=== PATIENT | female | born 1980 | race Caucasian/White ===

== ENCOUNTER 2024-11-27 00:04 | Inpatient (IN) | payer BC ==
[2024-11-27] MEDS ORDERED: Lidocaine 1% 50 ML MDV INJECT PRN (00:59)
[2024-11-27] MEDS ORDERED: Sodium Chloride 0.9% 2.5 ML Syringe FLUSH PRN (00:59)
[2024-11-27] MEDS ORDERED: Methylergonovine 0.2 MG/1 ML Amp IM PRN (00:59)
[2024-11-27] MEDS ORDERED: Sodium Chloride 0.9% 10 ML Syringe FLUSH PRN (00:59)
[2024-11-27] MEDS ORDERED: Water For Irrigation,Sterile 1,000 ML Container IRR PRN (00:59)
[2024-11-27] MEDS ORDERED: Carboprost Tromethamine 250 MCG/1 mL Vial IM PRN (00:59)
[2024-11-27] MEDS ORDERED: Sodium Chloride 0.9% 20 ML SDV IV PRN (00:59)
[2024-11-27] MEDS ORDERED: Butorphanol 2 MG/ML SDV IVPUSH PRN (00:59)
[2024-11-27] MEDS ORDERED: Tranexamic Acid in NACL,ISO-OS 1,000 MG in Premix Bag 1 BAG IV PRN (00:59)
[2024-11-27] MEDS ORDERED: Misoprostol 200 MCG Tab PO PRN (00:59)
[2024-11-27] MEDS ORDERED: Oxytocin/0.9 % Sodium Chloride 30 UNIT/500 ML BAG IV SCH (01:00)
[2024-11-27 02:19] LABS: HEMOGLOBIN 11.1 g/dL (12.0-16.0); MEAN CORPUSCULAR HEMOGLOBIN 30.1 pg (28.0-32.0); MEAN CORPUSCULAR HGB CONC 33.6 g/dL (32.0-36.0); MEAN CORPUSCULAR VOLUME 89.4 fL (83.0-99.0); MEAN PLATELET VOLUME 10.1 fL (9.4-12.3); PLATELET COUNT,PLT 275 K/uL (150-400); RED BLOOD CELL COUNT 3.69 M/uL (4.10-5.30); WHITE BLOOD CELL COUNT,WBC 8.54 K/uL (3.9-11.3)
[2024-11-27 02:43] LABS: CREATININE,URINE RAND 135.6 mg/dL; PROTEIN CREATININE RATIO,URINE 0.2; PROTEIN,URINE RANDOM 26.9 mg/dL (<11.9)
[2024-11-27 02:47] LABS: A/G RATIO 0.6 (0.9-1.6); ALBUMIN 2.4 g/dL (3.4-5.0); BILIRUBIN TOTAL 0.3 mg/dL (0.2-1.0); CALCIUM 8.7 mg/dL (8.5-10.1); CREATININE 0.6 mg/dL (0.6-1.0); EST CRCL DRUG DOSING (CG) 106.55 mL/min; PROTEIN TOTAL,TP 6.2 g/dL (6.4-8.2)
[2024-11-27] MEDS ORDERED: Terbutaline 1 MG/ML SDV SUBCUT PRN (03:06)
[2024-11-27] MEDS: Misoprostol 25 MCG (1/4 of 100 MCG) Tab VAG PRN ×2 (03:20→11:19)
[2024-11-27] MEDS: Lactated Ringers 1,000 ML IV SCH (06:00)
[2024-11-27] MEDS: NIFEdipine 30 MG Tab.ER PO SCH (07:02)
[2024-11-27] MEDS ORDERED: Phenylephrine HCl In 0.9% NaCl 1 MG/10 ML Syringe ONE (09:28)
[2024-11-27] MEDS ORDERED: Bupivacaine 0.5% 10 ML SDV ONE (09:28)
[2024-11-27] MEDS: Ropivacaine HCl/PF 200 ML ONE (09:44)
[2024-11-27] MEDS ORDERED: Bupivacaine 0.5% 10 ML SDV INJECT ONE (09:54)
[2024-11-27] MEDS ORDERED: ePHEDrine 50 MG/ML SDV IM PRN (09:54)
[2024-11-27] MEDS ORDERED: Phenylephrine HCl In 0.9% NaCl 1 MG/10 ML Syringe IVPUSH PRN (09:54)
[2024-11-27] MEDS ORDERED: ePHEDrine 50 MG/ML SDV IVPUSH PRN (09:54)
[2024-11-27] MEDS ORDERED: dexmedeTOMIDine HCl 200 MCG/2 ML SDV EPIDUR SCH (10:00)
[2024-11-27] MEDS ORDERED: Ropivacaine HCl/PF 400 MG in Premix Bag 1 BAG EPIDUR SCH (10:00)
[2024-11-27] MEDS ORDERED: Ondansetron 4 MG/2 ML SDV ONE (10:15)
[2024-11-27] MEDS: Ondansetron 4 MG/2 ML SDV IVPUSH PRN (10:19)
[2024-11-27] MEDS: Oxytocin/0.9 % Sodium Chloride 30 UNIT/500 ML BAG IV SCH (17:35)
[2024-11-27] MEDS ORDERED: Lanolin 100% Cream 7 GM Tube TOP PRN (18:52)
[2024-11-27] MEDS ORDERED: Oxytocin 10 Units/1 ML SDV IM PRN (18:52)
[2024-11-27] MEDS ORDERED: Docusate Sodium 100 MG Cap PO PRN (18:52)
[2024-11-27] MEDS ORDERED: Simethicone 80 MG Tab.Chew PO PRN (18:52)
[2024-11-27 19:37] LABS: PH,UMBILICAL ARTERIAL 7.146 (7.18-7.38); PH,UMBILICAL VENOUS 7.162 (7.25-7.45)
[2024-11-27] MEDS: Ibuprofen 800 MG Tab PO PRN (22:51)
[2024-11-27] MEDS: Acetaminophen 500 MG Tab PO PRN (22:51)
[2024-11-27] MEDS: Witch Hazel Medicated Pads 40/Jar TOP PRN (22:52)
[2024-11-27] MEDS: Benzocaine/Menthol 20%-0.5% Spray 78 GM Cannister TOP PRN (22:52)
[2024-11-28 05:31] LABS: BASOPHILS ABSOLUTE AUTO 0.02 K/uL (0.00-0.20); BASOPHILS PERCENT AUTO 0.2 % (0.0-1.0); EOSINOPHILS ABSOLUTE AUTO 0.03 K/uL (0.00-0.45); EOSINOPHILS PERCENT AUTO 0.3 % (0.0-6.0); HEMATOCRIT 29.5 % (37.0-47.0); HEMOGLOBIN 10.1 g/dL (12.0-16.0); IMMATURE GRAN ABSOLUTE AUTO 0.05 K/uL (0.00-0.05); IMMATURE GRAN PERCENT AUTO 0.4 % (0.0-0.4); LYMPHOCYTES ABSOLUTE AUTO 2.41 K/uL (1.00-4.80); LYMPHOCYTES PERCENT AUTO 20.5 % (24.0-44.0); MEAN CORPUSCULAR HEMOGLOBIN 30.8 pg (28.0-32.0); MEAN CORPUSCULAR HGB CONC 34.2 g/dL (32.0-36.0); MEAN CORPUSCULAR VOLUME 89.9 fL (83.0-99.0); MEAN PLATELET VOLUME 10.5 fL (9.4-12.3); MONOCYTES ABSOLUTE AUTO 1.15 K/uL (0.00-0.80); MONOCYTES PERCENT AUTO 9.8 % (0.0-8.0); NEUTROPHILS ABSOLUTE AUTO 8.12 K/uL (1.80-7.70); NEUTROPHILS PERCENT AUTO 68.8 % (41.0-71.0); PLATELET COUNT,PLT 240 K/uL (150-400); RED BLOOD CELL COUNT 3.28 M/uL (4.10-5.30); WHITE BLOOD CELL COUNT,WBC 11.78 K/uL (3.9-11.3)
== END 2024-11-28 22:10 | disposition home or self-care (01) | DRG 560 ==
LOC: MW.OB 00:04 → OBSVTOIN 18:25 → MW.OB 23:41
PROVIDERS: ADMIT Obstetrics & Gynecology; ATTEND Obstetrics & Gynecology
PROC: 10E0XZZ Delivery of Products of Conception, External Approach (ICD-10-PCS; principal; 2024-11-27)
DX: O10.92 Unspecified pre-existing hypertension complicating childbirth (principal); Z37.0 Single live birth; O24.12 Pre-existing type 2 diabetes mellitus, in childbirth; O99.214 Obesity complicating childbirth; Z64.1 Problems related to multiparity; Z3A.38 38 weeks gestation of pregnancy
CPT/HCPCS: 01967; 36415; 51702; 59025; 76815; 76815-26; 80053; 82570; 82803; 84156; 85025; 85027; 86592; 86850; 86900; 86901; A9270-GY; J0665; J2371; J2405; J2590; J2795; J7120